=== PATIENT | male | born 1980 ===

== ENCOUNTER 2019-02-21 10:20 | Emergency (ER) | payer BC ==
[2019-02-21 10:44] VITALS: BP 122/73
--- NOTE | 2019-02-21 11:11 | UC ---
Skin Complaint HPI - HPI Summary HPI Summary: 2 weeks ago Had tick on R leg for less than 12 hours (was in [place] running). started feeling run down 5 days ago, next day was very nauseous and stayed in bed for 2 days, did not vomit, no diarrhea. No other symps except nausea and fatigue, possible fever. lost weight from not eating. was able to drink fluids. 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 Yesterday felt well enough to mow lawn and felt bug bite on R upper posterior thigh, now has a swollen red noy there. has been taking ibuprofen which has helped symps during illness Pt very concerned about Lyme disease since he runs through the [employer] every day. although does monitor for ticks qd - History of Current Complaint Chief Complaint: [facility]kin Time Seen by Provider: 02/21/19 10:47 Stated Complaint: FEVER/RASH/TICKBITE Hx Obtained From: Patient Onset/Duration: Gradual Onset Onset Severity: Mild Current Severity: None Pain Intensity: 0 Aggravating Factor(s): Nothing Alleviating Factor(s): OTC Meds - ibuprofen Associated Signs & Symptoms: Positive: Nausea. Negative: Vomiting, Thirst, Fever - felt feverish but when temp taken it was normal, Chills, Cough Related History: Insect Bite/Sting - Allergy/Home Medications Allergies/Adverse Reactions: Allergies Allergy/AdvReac Type Severity Reaction Status Date / Time No Known Allergies Allergy Verified 02/21/19 10:44 Home Medications: Home Medications Ibuprofen 200 mg PO 02/21/19 [History] PMH/Surg Hx/FS Hx/Imm Hx Previously Healthy: Yes - Surgical History Surgical History: Yes Surgery Procedure, Year, and Place: lt knee surgery - Family History Known Family History: Positive: None - Social History Occupation: Employed Full-time Lives: With Family Alcohol Use: Rare Substance Use Type: None Smoking Status (MU): Never Smoked Tobacco Review of Systems All Other Systems Reviewed And Are Negative: Yes Constitutional: Positive: Negative Skin: Positive: Other - bug bite R upper thigh ENT: Positive: Negative. Negative: Sore Throat, Sinus Congestion Respiratory: Positive: Negative. Negative: Cough Cardiovascular: Positive: Negative. Negative: Palpitations, Chest Pain Gastrointestinal: Positive: Nausea - nausea is better today Musculoskeletal: Positive: Negative. Negative: Arthralgia, Decreased ROM, Edema , Myalgia Neurological: Positive: Negative. Negative: Headache Psychological: Positive: Negative Is Patient Immunocompromised?: No Physical Exam Triage Information Reviewed: Yes Appearance: Well-Appearing, No Pain Distress, Well-Nourished Vital Signs: Initial Vital Signs Temp 98.8 F 02/21/19 10:37 Pulse 60 02/21/19 10:37 Resp 18 02/21/19 10:37 BP 122/73 02/21/19 10:37 Pulse Ox 100 02/21/19 10:37 Vital Signs Reviewed: Yes ENT Exam: Normal Neck exam: Normal Neck: Positive: No Lymphadenopathy Respiratory Exam: Normal Respiratory: Positive: Lungs clear Cardiovascular Exam: Normal Cardiovascular: Positive: RRR - has low HR from running states usually in 40's Abdominal Exam: Normal Abdomen Description: Positive: Nontender, No Organomegaly, Soft Bowel Sounds: Positive: Present Musculoskeletal Exam: Normal Musculoskeletal: Positive: ROM Intact, No Edema Neurological Exam: Normal Neurological: Positive: Alert Psychological Exam: Normal Skin Exam: Normal Skin: Positive: Other - erythemic oval slightly raised area site bug bite R upper posterior thigh. Negative: Rashes Course/Dx - Differential Diagnoses - Skin Complaint Differential Diagnoses: Tick Born Illness, Other - viral illness, URI, influenza - Diagnoses Provider Diagnosis: Viral illness Discharge - Sign-Out/Discharge Documenting (check all that apply): Patient Departure All imaging exams completed and their final reports reviewed: No Studies - Discharge Plan Condition: Good Disposition: HOME Patient Education Materials: Viral Syndrome (ED) Referrals: Umair Lindsey MD [Primary Care Provider] - 2 Days (if no improvement) Additional Instructions: Rest and drink plenty of fluids follow-up with Lyme results in 3-4 days Return here or to ER if symptoms worsen at anytime - Billing Disposition and Condition Condition: GOOD Disposition: Home
--- NOTE | 2019-02-22 16:00 | UC ---
- Progress Note Progress Note: Pt's Lyme equivocal sent for confirmatory testing- can take 7-10days for result Sent Rx Doxy for pt - please call and update f/u with Dr Vasquez please Course/Dx - Diagnoses Provider Diagnoses: Viral illness Discharge - Sign-Out/Discharge Documenting (check all that apply): Post-Discharge Follow Up All imaging exams completed and their final reports reviewed: No Studies - Discharge Plan Condition: Good Disposition: HOME Patient Education Materials: Viral Syndrome (ED) Referrals: Umair Lindsey MD [Primary Care Provider] - 2 Days (if no improvement) Additional Instructions: Rest and drink plenty of fluids follow-up with Lyme results in 3-4 days Return here or to ER if symptoms worsen at anytime - Billing Disposition and Condition Condition: GOOD Disposition: Home
== END 2019-02-21 11:35 | disposition home or self-care (01) ==
LOC: UCEAST 10:20
DX: T63.481A Toxic effect of venom of other arthropod, accidental (unintentional), initial encounter (principal); Y92.9 Unspecified place or not applicable; B34.9 Viral infection, unspecified
CPT/HCPCS: 36415; 86617; 86618; 99211; G0463